=== PATIENT | female | born 1945 | race Caucasian/White ===

== ENCOUNTER 2016-09-09 19:22 | Inpatient (IN) | payer MEDICARE, OTHER ==
[~2016-09-09] VITALS: Ht 162.6 cm; Wt 75.3 kg
[~2016-09-09 19:22] MED LIST: ALBU18HF2 IH; ASCO-371 PO; BACL10TA PO; BISA10SU8 RC; CALC-167 PO; CHOL100062 PO; CRAN450C PO; DEXL30CA3 PO; DICL50TA9 PO; DICY20TA11 PO; DOCU-170 PO; ESZO3TAB10 PO; FENT1PAT22 TD; FENT1PAT6 TD; FLUT1DIS28 IH; HYDR25CA PO; LACT10SO7 PO; LIDO700A TP; LORA-259 PO; LORA10TA47 PO; LOSA50TA21 PO; MAGN400O4 PO; MONT10TA25 PO; MORP15TA7 PO; MORP30TA7 PO; MULT-1005 PO; OXYC30TA2 PO; PROP40TA7 PO; PSEU30TA PO; [UNRECOGNIZED DRUG - CODE] PO
--- NOTE | 2016-09-09 19:25 | NUR ---
PATIENT BROUGHT IN BY PRIVATE AMBULANCE FROM [facility] TO BE MEDICALLY CLEARED TO PLACED ON POSSIBLE 5150 HOLD... PT FROM [facility], PT IS NON RESPONSIVE TO STIMULUS , IS NON VERBAL, NO RESP DISTRESS NOTED OR REPORTED UPON ASSESSMENT..PT HAS SCRATCH ON LEFT SIDE OF CHEST... MD AT BEDSIDE...
--- NOTE | 2016-09-09 19:50 | NUR ---
MEDICALLY CLEARED BY DR MIRZA.CALLED JESSICA OCHOA FROM [employer] WHO WILL EVAL PATIENT
[2016-09-09] MEDS ORDERED: MORP60TA34 PO (19:57)
[2016-09-09] MEDS ORDERED: ATOR80TA PO (19:57)
[2016-09-09] MEDS ORDERED: ACET650T10 PO (19:57)
[2016-09-09] MEDS ORDERED: ASPI81TA31 PO (19:57)
[2016-09-09] MEDS ORDERED: CARV3.122 PO (19:57)
[2016-09-09] MEDS ORDERED: LUBI24CA7 PO (19:57)
[2016-09-09] MEDS ORDERED: LIDO5CRE18 TP (19:57)
[2016-09-09] MEDS ORDERED: NITR0.4T6 SL (19:57)
[2016-09-09] MEDS ORDERED: FURO-152 PO (19:57)
[2016-09-09] MEDS ORDERED: FAMO-132 PO (19:57)
[2016-09-09] MEDS ORDERED: CLOP75TA2 PO (19:57)
--- NOTE | 2016-09-09 20:25 | NUR ---
CALL PLACED TO [facility], TO INQUIRE ABOUT CODE STATUS, SPOKE WITH HERACLIO, WHO STATED THAT IF NO CODE STATUS IS INDICATED THAT PT IS FULL CODE, ONLY DNR'S ARE INDICATED... HERACLIO STATES THERES IS NO PAPERWORK SHE CAN FAX OVER TO VERIFY INFO...
[2016-09-09] MEDS ORDERED: CEPH-570 PO (20:40)
[2016-09-09] MEDS ORDERED: LEVE500T9 PO (20:40)
[2016-09-09] MEDS ORDERED: HYDR-4076 PO (20:40)
[2016-09-09] MEDS ORDERED: LIDO30AD10 TD (20:40)
[2016-09-09] MEDS ORDERED: PANT40TA2 PO (20:40)
[2016-09-09] MEDS ORDERED: CARV12.52 PO (20:40)
[2016-09-09] MEDS ORDERED: ZOLP5TAB7 PO (20:40)
[2016-09-09] MEDS ORDERED: ESCI10TA PO (20:40)
[2016-09-09] MEDS ORDERED: NA P133E RC (20:40)
[2016-09-09] MEDS ORDERED: POTA20TA83 PO (20:40)
[2016-09-09] MEDS ORDERED: NIFE30TA23 PO (20:40)
[2016-09-09] MEDS ORDERED: CLON0.1T PO (20:40)
[2016-09-09] MEDS ORDERED: GABA-534 PO (20:40)
[2016-09-09] MEDS ORDERED: ENOX40DI SQ (20:40)
--- NOTE | 2016-09-09 21:36 | NUR ---
advised by [facility] charge nurse that, no beds available, states will c/b...
--- NOTE | 2016-09-09 22:05 | NUR ---
Pt. admitted to [facility] , under care of Dr. Maldonado/ Guillaume, Belongs List completed, pt is alert, oriented x 2-3, no resp distress noted or reported upon transfer assessment...pt to be transferred via gurney...
[2016-09-09] MEDS ORDERED: TEMAZEPAM 7.5 MG CAPSULE PO PRN (23:15)
[2016-09-09] MEDS ORDERED: MAGNESIUM HYDROXIDE 30 ML LIQUID UDC PO PRN (23:15)
[2016-09-09] MEDS ORDERED: MAG HYDROX/AL HYDROX/SIMETH 30 ML LIQUID UDC PO PRN (23:15)
[2016-09-09] MEDS ORDERED: LORAZEPAM 0.5 MG TABLET PO PRN (23:15)
[2016-09-10 01:00] VITALS: BP 146/76
--- NOTE | 2016-09-10 06:28 | NUR ---
GPS: REMAIN CALM AND COOPERATIVE. SLEPT 6 HRS THROUGH THE NIGHT. NO AGITATION NOTED.ASSISTED WITH ADL'S. RESTING IN BED COMFORTABLY.CONTINUE PLAN OF CARE.
[2016-09-10 07:30] VITALS: BP 169/81
[2016-09-10] MEDS ORDERED: MORP30TA59 PO (10:29)
[2016-09-10] MEDS ORDERED: CLONIDINE HCL 0.1 MG TABLET PO PRN (11:00)
[2016-09-10] MEDS ORDERED: FAMOTIDINE 20 MG TABLET PO SCH (11:00)
[2016-09-10] MEDS ORDERED: LACTULOSE 20 G/30 ML LIQUID UDC PO PRN (11:00)
[2016-09-10] MEDS ORDERED: BACLOFEN 10 MG TABLET PO PRN (11:00)
[2016-09-10] MEDS ORDERED: NITROGLYCERIN 0.4 MG/TAB BOTTLE SL PRN (11:00)
[2016-09-10] MEDS ORDERED: FLEET ENEMA 133 ML BOTTLE RC PRN (11:00)
--- NOTE | 2016-09-10 12:08 | NUR ---
Initial discharge instructions: Pt resides at [facility] [[address],[place], [place],[address];[phone].Per pt,she would like to return there upon discharge.Spoke with Kadi at the facility who stated she may return,however will need to be reassessed before returning.There is no family listed on the chart,and pt reports to have none.SW will speak with pt and MD regarding appropriate discharge planning.SW will form a safe and proper discharge.
[2016-09-10] MEDS: LOSARTAN POTASSIUM 50 MG TABLET PO SCH (12:58)
[2016-09-10] MEDS: hydrALAZINE HCL 25 MG TABLET PO SCH ×2 (12:58→17:00)
[2016-09-10] MEDS: GABAPENTIN 300 MG CAPSULE PO SCH ×2 (12:58→17:00)
[2016-09-10] MEDS: NIFEdipine XL 30 MG TABSR PO SCH ×2 (12:59→20:52)
[2016-09-10] MEDS: POTASSIUM CHLORIDE 20 MEQ TAB.PRT.SR PO SCH (12:59)
[2016-09-10] MEDS: CLOPIDOGREL 75 MG TABLET PO SCH (12:59)
[2016-09-10] MEDS: ASCORBIC ACID 500 MG TABLET PO SCH (12:59)
[2016-09-10] MEDS: LEVETIRACETAM 500 MG TABLET PO SCH ×2 (12:59→17:00)
[2016-09-10] MEDS: FUROSEMIDE 20 MG TABLET PO SCH (12:59)
[2016-09-10] MEDS: CALCIUM CARB/VITAMIN D 500MG-200UNITS TABLET PO SCH (12:59)
[2016-09-10] MEDS: ENOXAPARIN SODIUM 40 MG/0.4 ML DISP.SYRIN SQ SCH (13:00)
[2016-09-10] MEDS: CARVEDILOL 12.5 MG TABLET PO SCH ×2 (14:11→18:00)
[2016-09-10] MEDS: LIDOCAINE 5% PATCH TD SCH (14:12)
[2016-09-10] MEDS: DOCUSATE SODIUM 100 MG CAPSULE PO SCH (17:00)
--- NOTE | 2016-09-10 18:26 | NUR ---
Patient sound asleep after shower rendered earlier this afternoon. Offered dinner meal and medications due at 1700, patient just open eyes then fall back to sleep. B/p rechecked 118/64; HR-65. Will monitor and endorse to next shift.
--- NOTE | 2016-09-10 20:19 | NUR ---
pt received in her room lying in bed awake, quiet, guarded, non interactive, denies SI/HI, will continue to monitor closely.
[2016-09-10 20:49] VITALS: BP 134/74
[2016-09-10] MEDS: LORATADINE 10 MG TABLET PO SCH (20:51)
[2016-09-10] MEDS: MONTELUKAST SODIUM 10 MG TABLET PO SCH (20:51)
[2016-09-10] MEDS: ATORVASTATIN 40 MG TABLET PO SCH (20:51)
[2016-09-10] MEDS: DIVALPROEX 250 MG TABLET.DR PO SCH (20:51)
[2016-09-10] MEDS ORDERED: MORPHINE SULFATE SR 30 MG TABLET.SA PO SCH (21:00)
[2016-09-11] MEDS: PANTOPRAZOLE SODIUM 40 MG TABLET.DR PO SCH (06:46)
[2016-09-11 07:30] VITALS: BP 145/72
[2016-09-11] MEDS: CARVEDILOL 12.5 MG TABLET PO SCH ×2 (08:00→17:14)
[2016-09-11] MEDS ORDERED: HOME MED MISCELLANEOUS PO SCH (09:00)
[2016-09-11] MEDS: NIFEdipine XL 30 MG TABSR PO SCH ×2 (09:00→20:12)
[2016-09-11] MEDS: ASPIRIN 81 MG TAB.CHEW PO SCH (09:00)
[2016-09-11] MEDS: CHOLECALCIFEROL 1,000 UNIT TABLET PO SCH (09:00)
[2016-09-11] MEDS: CLOPIDOGREL 75 MG TABLET PO SCH (09:40)
[2016-09-11] MEDS: hydrALAZINE HCL 25 MG TABLET PO SCH ×3 (09:40→17:13)
[2016-09-11] MEDS: LIDOCAINE 5% PATCH TD SCH (09:40)
[2016-09-11] MEDS: ASCORBIC ACID 500 MG TABLET PO SCH (09:41)
[2016-09-11] MEDS: FUROSEMIDE 20 MG TABLET PO SCH (09:41)
[2016-09-11] MEDS: DOCUSATE SODIUM 100 MG CAPSULE PO SCH ×3 (09:41→17:13)
[2016-09-11] MEDS: MULTIVIT, IRON, MIN NO. 8, FA TABLET PO SCH (09:41)
[2016-09-11] MEDS: CALCIUM CARB/VITAMIN D 500MG-200UNITS TABLET PO SCH (09:41)
[2016-09-11] MEDS: ESCITALOPRAM OXALATE 10 MG TABLET PO SCH (09:41)
[2016-09-11] MEDS: POTASSIUM CHLORIDE 20 MEQ TAB.PRT.SR PO SCH (09:41)
[2016-09-11] MEDS: GABAPENTIN 300 MG CAPSULE PO SCH ×2 (09:41→17:13)
[2016-09-11] MEDS: LOSARTAN POTASSIUM 50 MG TABLET PO SCH (09:42)
[2016-09-11] MEDS: DIVALPROEX 250 MG TABLET.DR PO SCH ×2 (09:43→20:12)
[2016-09-11] MEDS: LEVETIRACETAM 500 MG TABLET PO SCH ×2 (09:43→17:13)
[2016-09-11] MEDS: ENOXAPARIN SODIUM 40 MG/0.4 ML DISP.SYRIN SQ SCH (09:44)
[2016-09-11 15:33] VITALS: BP 163/82
--- NOTE | 2016-09-11 18:29 | NUR ---
PATIENT REMAINS DEPRESSED AND REFUSING LAXATIVES , SHE IS SLOW TO RESPOND EXCEPT LEFT SHOULDER PAIN WHICH LIDO DERM IS APPLIED
[2016-09-11] MEDS: LORATADINE 10 MG TABLET PO SCH (20:12)
[2016-09-11] MEDS: MONTELUKAST SODIUM 10 MG TABLET PO SCH (20:12)
[2016-09-11] MEDS: ATORVASTATIN 40 MG TABLET PO SCH (20:12)
[2016-09-11 20:29] VITALS: BP 154/86
[2016-09-12] MEDS: PANTOPRAZOLE SODIUM 40 MG TABLET.DR PO SCH (06:26)
--- NOTE | 2016-09-12 06:37 | NUR ---
GPS: PATIENT REMAIN DEPRESSED BUT COOPERATIVE WITH MEDS AND CARE. SLEPT 8 HRS THROUGH THE NIGHT.ASSISTED WITH ADL'S. CONTINUE PLAN OF CARE.
[2016-09-12 07:30] VITALS: BP 175/76
[2016-09-12] MEDS: CARVEDILOL 12.5 MG TABLET PO SCH ×2 (09:04→17:22)
[2016-09-12] MEDS: DOCUSATE SODIUM 100 MG CAPSULE PO SCH ×2 (09:05→17:21)
[2016-09-12] MEDS: ASPIRIN 81 MG TAB.CHEW PO SCH (09:05)
[2016-09-12] MEDS: hydrALAZINE HCL 25 MG TABLET PO SCH ×3 (09:05→17:21)
[2016-09-12] MEDS: DIVALPROEX 250 MG TABLET.DR PO SCH ×2 (09:06→20:17)
[2016-09-12] MEDS: POTASSIUM CHLORIDE 20 MEQ TAB.PRT.SR PO SCH (09:06)
[2016-09-12] MEDS: ESCITALOPRAM OXALATE 10 MG TABLET PO SCH (09:06)
[2016-09-12] MEDS: FUROSEMIDE 20 MG TABLET PO SCH (09:06)
[2016-09-12] MEDS: LOSARTAN POTASSIUM 50 MG TABLET PO SCH (09:06)
[2016-09-12] MEDS: LEVETIRACETAM 500 MG TABLET PO SCH ×2 (09:06→17:21)
[2016-09-12] MEDS: GABAPENTIN 300 MG CAPSULE PO SCH ×2 (09:07→17:21)
[2016-09-12] MEDS: CALCIUM CARB/VITAMIN D 500MG-200UNITS TABLET PO SCH (09:07)
[2016-09-12] MEDS: NIFEdipine XL 30 MG TABSR PO SCH ×2 (09:07→20:17)
[2016-09-12] MEDS: CLOPIDOGREL 75 MG TABLET PO SCH (09:07)
[2016-09-12] MEDS: ASCORBIC ACID 500 MG TABLET PO SCH (09:11)
[2016-09-12] MEDS: MULTIVIT, IRON, MIN NO. 8, FA TABLET PO SCH (09:11)
[2016-09-12] MEDS: CHOLECALCIFEROL 1,000 UNIT TABLET PO SCH (09:11)
[2016-09-12] MEDS: LIDOCAINE 5% PATCH TD SCH (09:12)
[2016-09-12] MEDS: ENOXAPARIN SODIUM 40 MG/0.4 ML DISP.SYRIN SQ SCH (09:28)
[2016-09-12 16:06] VITALS: BP 152/72
[2016-09-12] MEDS: ATORVASTATIN 40 MG TABLET PO SCH (20:16)
[2016-09-12] MEDS: MONTELUKAST SODIUM 10 MG TABLET PO SCH (20:16)
[2016-09-12] MEDS: LORATADINE 10 MG TABLET PO SCH (20:17)
[2016-09-12 20:27] VITALS: BP 116/60
[2016-09-13] MEDS: PANTOPRAZOLE SODIUM 40 MG TABLET.DR PO SCH (06:14)
--- NOTE | 2016-09-13 06:21 | NUR ---
GPS: REMAIN CALM AND COOPERATIVE.COMPLIANT WITH MEDS AND CARE. ASSISTED WITH ADL'S. SLEPT 8 HRS THROUGH THE NIGHT. CONTINUE PLAN OF CARE.
[2016-09-13 07:30] VITALS: BP 124/67
[2016-09-13] MEDS: LIDOCAINE 5% PATCH TD SCH (08:33)
[2016-09-13] MEDS: ASPIRIN 81 MG TAB.CHEW PO SCH (08:34)
[2016-09-13] MEDS: NIFEdipine XL 30 MG TABSR PO SCH ×2 (08:34→20:19)
[2016-09-13] MEDS: CALCIUM CARB/VITAMIN D 500MG-200UNITS TABLET PO SCH (08:34)
[2016-09-13] MEDS: GABAPENTIN 300 MG CAPSULE PO SCH ×2 (08:34→17:09)
[2016-09-13] MEDS: CLOPIDOGREL 75 MG TABLET PO SCH (08:34)
[2016-09-13] MEDS: ASCORBIC ACID 500 MG TABLET PO SCH (08:34)
[2016-09-13] MEDS: CARVEDILOL 12.5 MG TABLET PO SCH ×2 (08:35→17:17)
[2016-09-13] MEDS: DOCUSATE SODIUM 100 MG CAPSULE PO SCH ×2 (08:35→17:10)
[2016-09-13] MEDS: POTASSIUM CHLORIDE 20 MEQ TAB.PRT.SR PO SCH (08:35)
[2016-09-13] MEDS: ESCITALOPRAM OXALATE 10 MG TABLET PO SCH (08:35)
[2016-09-13] MEDS: LOSARTAN POTASSIUM 50 MG TABLET PO SCH (08:36)
[2016-09-13] MEDS: hydrALAZINE HCL 25 MG TABLET PO SCH ×3 (08:36→17:11)
[2016-09-13] MEDS: CHOLECALCIFEROL 1,000 UNIT TABLET PO SCH (08:37)
[2016-09-13] MEDS: MULTIVIT, IRON, MIN NO. 8, FA TABLET PO SCH (08:37)
[2016-09-13] MEDS: LEVETIRACETAM 500 MG TABLET PO SCH ×2 (08:37→17:09)
[2016-09-13] MEDS: DIVALPROEX 250 MG TABLET.DR PO SCH ×2 (08:37→20:20)
[2016-09-13] MEDS: FUROSEMIDE 20 MG TABLET PO SCH (08:37)
[2016-09-13] MEDS: ENOXAPARIN SODIUM 40 MG/0.4 ML DISP.SYRIN SQ SCH (08:38)
[2016-09-13 15:20] VITALS: BP 123/69
--- NOTE | 2016-09-13 18:09 | NUR ---
PT REMAINS DEPRESSED WITH NOSELF DISCLOUSEURE EATING A LITTLE MORE TODAY CONTINUE TO MONITOR FOR SAFETY
[2016-09-13] MEDS: ATORVASTATIN 40 MG TABLET PO SCH (20:19)
[2016-09-13] MEDS: MONTELUKAST SODIUM 10 MG TABLET PO SCH (20:19)
[2016-09-13] MEDS: LORATADINE 10 MG TABLET PO SCH (20:20)
[2016-09-13 20:31] VITALS: BP 121/58
[2016-09-14] MEDS: PANTOPRAZOLE SODIUM 40 MG TABLET.DR PO SCH (06:21)
--- NOTE | 2016-09-14 06:23 | NUR ---
Remains depressed but compliant w/ meds. Rested well. Patient received morning shower today. Will continue to monitor.
[2016-09-14 07:30] VITALS: BP 146/64
[2016-09-14] MEDS: CARVEDILOL 12.5 MG TABLET PO SCH ×2 (08:35→17:18)
[2016-09-14] MEDS: FUROSEMIDE 20 MG TABLET PO SCH (08:35)
[2016-09-14] MEDS: ASCORBIC ACID 500 MG TABLET PO SCH (08:35)
[2016-09-14] MEDS: GABAPENTIN 300 MG CAPSULE PO SCH ×2 (08:35→17:08)
[2016-09-14] MEDS: CLOPIDOGREL 75 MG TABLET PO SCH (08:36)
[2016-09-14] MEDS: LEVETIRACETAM 500 MG TABLET PO SCH ×2 (08:36→17:08)
[2016-09-14] MEDS: CALCIUM CARB/VITAMIN D 500MG-200UNITS TABLET PO SCH (08:36)
[2016-09-14] MEDS: POTASSIUM CHLORIDE 20 MEQ TAB.PRT.SR PO SCH (08:36)
[2016-09-14] MEDS: ASPIRIN 81 MG TAB.CHEW PO SCH (08:36)
[2016-09-14] MEDS: MULTIVIT, IRON, MIN NO. 8, FA TABLET PO SCH (08:36)
[2016-09-14] MEDS: LOSARTAN POTASSIUM 50 MG TABLET PO SCH (08:36)
[2016-09-14] MEDS: ESCITALOPRAM OXALATE 10 MG TABLET PO SCH (08:36)
[2016-09-14] MEDS: DOCUSATE SODIUM 100 MG CAPSULE PO SCH ×2 (08:36→17:08)
[2016-09-14] MEDS: hydrALAZINE HCL 25 MG TABLET PO SCH ×3 (08:37→17:17)
[2016-09-14] MEDS: NIFEdipine XL 30 MG TABSR PO SCH ×2 (08:37→20:00)
[2016-09-14] MEDS: DIVALPROEX 250 MG TABLET.DR PO SCH ×2 (08:37→20:00)
[2016-09-14] MEDS: CHOLECALCIFEROL 1,000 UNIT TABLET PO SCH (08:37)
[2016-09-14] MEDS: ENOXAPARIN SODIUM 40 MG/0.4 ML DISP.SYRIN SQ SCH (08:39)
[2016-09-14] MEDS: LIDOCAINE 5% PATCH TD SCH ×2 (08:40→09:00)
[2016-09-14 16:14] VITALS: BP 109/53
--- NOTE | 2016-09-14 19:26 | NUR ---
Bladder scan done and 700ml of urinary retention noted. MD called and made aware. New orders received and carried out.
[2016-09-14 19:32] LABS: *BILIRUBIN,URIN NEGATIVE (NEGATIVE); *BLOOD, URINE NEGATIVE (NEGATIVE); *CLARITY,URINE CLEAR (CLEAR); *COLOR,URINE YELLOW (YELLOW); *KETONES,URINE NEGATIVE (NEGATIVE); *PROTEIN,URINE NEGATIVE (NEGATIVE); *UROBILINOGEN,URINE 0.2 E.U./dl (NORMAL); LEUKOCYTE ESTERASE ,URINE NEGATIVE (NEGATIVE); NITRITE, URINE NEGATIVE (NEGATIVE); UGLUCOSE NEGATIVE (NEGATIVE)
[2016-09-14 19:47] LABS: RBC,URINE 0-3 /HPF (0-3); SQUAMOUS EPITHELIAL CELL,UR FEW /HPF (NONE SEEN); WBC,URINE 0-3 /HPF (0-3)
[2016-09-14] MEDS: ATORVASTATIN 40 MG TABLET PO SCH (20:00)
[2016-09-14] MEDS: MONTELUKAST SODIUM 10 MG TABLET PO SCH (20:00)
[2016-09-14] MEDS: LORATADINE 10 MG TABLET PO SCH (20:00)
[2016-09-14] MEDS: Z GUARD REMEDY PASTE 57 GM TUBE TOP SCH (20:01)
[2016-09-14 20:17] VITALS: BP 106/54
--- NOTE | 2016-09-14 20:30 | NUR ---
PT RECEIVED IN HER ROOM LYING IN BED AWAKE, DEPRESSED AND FLAT AFFECT, WILLIAM IN AND DRAINING JACK COLOR, TOO ALL HS MEDS ORDERED, BP MED HELD DUE TO LOW BUT STABLE BP, WILL CONTINUE TO MONITOR.
[2016-09-15] MEDS: PANTOPRAZOLE SODIUM 40 MG TABLET.DR PO SCH (06:40)
[2016-09-15 08:00] VITALS: BP 132/62
[2016-09-15] MEDS: CARVEDILOL 12.5 MG TABLET PO SCH ×2 (08:00→17:39)
[2016-09-15] MEDS: DIVALPROEX 250 MG TABLET.DR PO SCH ×2 (08:47→20:01)
[2016-09-15] MEDS: CLOPIDOGREL 75 MG TABLET PO SCH (08:47)
[2016-09-15] MEDS: CALCIUM CARB/VITAMIN D 500MG-200UNITS TABLET PO SCH (08:47)
[2016-09-15] MEDS: DOCUSATE SODIUM 100 MG CAPSULE PO SCH ×2 (08:48→17:39)
[2016-09-15] MEDS: ASPIRIN 81 MG TAB.CHEW PO SCH (08:48)
[2016-09-15] MEDS: CHOLECALCIFEROL 1,000 UNIT TABLET PO SCH (08:48)
[2016-09-15] MEDS: ASCORBIC ACID 500 MG TABLET PO SCH (08:48)
[2016-09-15] MEDS: ENOXAPARIN SODIUM 40 MG/0.4 ML DISP.SYRIN SQ SCH (08:52)
[2016-09-15] MEDS: POTASSIUM CHLORIDE 20 MEQ TAB.PRT.SR PO SCH (09:31)
[2016-09-15] MEDS: MULTIVIT, IRON, MIN NO. 8, FA TABLET PO SCH (09:31)
[2016-09-15] MEDS: LEVETIRACETAM 500 MG TABLET PO SCH ×2 (09:31→17:39)
[2016-09-15] MEDS: NIFEdipine XL 30 MG TABSR PO SCH ×2 (09:31→20:02)
[2016-09-15] MEDS: ESCITALOPRAM OXALATE 10 MG TABLET PO SCH (09:31)
[2016-09-15] MEDS: LOSARTAN POTASSIUM 50 MG TABLET PO SCH (09:31)
[2016-09-15] MEDS: hydrALAZINE HCL 25 MG TABLET PO SCH ×3 (09:32→17:39)
[2016-09-15] MEDS: GABAPENTIN 300 MG CAPSULE PO SCH ×2 (09:32→17:38)
[2016-09-15] MEDS: FUROSEMIDE 20 MG TABLET PO SCH (09:32)
[2016-09-15] MEDS: LIDOCAINE 5% PATCH TD SCH (09:33)
[2016-09-15] MEDS: Z GUARD REMEDY PASTE 57 GM TUBE TOP SCH ×2 (09:33→20:03)
[2016-09-15 16:00] VITALS: BP 125/63
[2016-09-15] MEDS: LORATADINE 10 MG TABLET PO SCH (20:01)
[2016-09-15] MEDS: MONTELUKAST SODIUM 10 MG TABLET PO SCH (20:01)
[2016-09-15] MEDS: ATORVASTATIN 40 MG TABLET PO SCH (20:01)
--- NOTE | 2016-09-15 20:05 | NUR ---
PT IS DEPRESSED,GUARDED, WITHDRAWN AND ISOLATIVE. TEARY EYES, PT ENCOURAGED TO MAKE NEEDS KNOWN, MED COMPLIANT, WILL CONTINUE TO MONITOR.
[2016-09-15 20:20] VITALS: BP 120/54
[2016-09-16] MEDS: PANTOPRAZOLE SODIUM 40 MG TABLET.DR PO SCH (06:31)
[2016-09-16 07:05] LABS: BASOPHILS % (AUTO) 0.1 % (0.0-2.0); EOSINOPHILS # (AUTO) 0.2 K/uL (0.0-0.7); HEMOGLOBIN 12.9 G/DL (12.0-16.0); LYMPHOCYTES % (AUTO) 24.8 % (20.5-51.5); MEAN CORPUSCULAR HEMOGLOBIN 31.6 UUG (27.0-31.0); MEAN CORPUSCULAR HGB CONC 33 g/dL (32.0-37.0); MEAN CORPUSCULAR VOLUME 95.4 FL (81.0-99.0); MONOCYTES # (AUTO) 0.9 K/UL (0.1-1.30); MONOCYTES % (AUTO) 7.3 % (0.0-11.0); NEUTROPHILS # (AUTO) 7.9 K/UL (1.8-8.9); NEUTROPHILS % (AUTO) 65.8 % (38.5-71.5); PLATELET COUNT (AUTO) 242 K/UL (150-450); RED BLOOD CELL COUNT(AUTO) 4.09 MIL/UL (4.2-5.4)
[2016-09-16 07:15] LABS: CREATININE 0.7 mg/dL (0.6-1.3); POTASSIUM 3.9 mmol/L (3.5-5.1)
[2016-09-16 07:30] VITALS: BP 125/61
--- NOTE | 2016-09-16 08:36 | NUR ---
GPS/RN- DR HUYNH HERE TO SEE PATIENT INFORMED OF AM LABS INCLUDING ELEVATED WBC THIS AM, NO NEW ORDERS RECEIVED AT THIS TIME CONTINUE TO MONITOR
[2016-09-16] MEDS: FUROSEMIDE 20 MG TABLET PO SCH (08:40)
[2016-09-16] MEDS: ESCITALOPRAM OXALATE 10 MG TABLET PO SCH (08:40)
[2016-09-16] MEDS: CALCIUM CARB/VITAMIN D 500MG-200UNITS TABLET PO SCH (08:40)
[2016-09-16] MEDS: CHOLECALCIFEROL 1,000 UNIT TABLET PO SCH (08:40)
[2016-09-16] MEDS: DOCUSATE SODIUM 100 MG CAPSULE PO SCH ×2 (08:40→17:44)
[2016-09-16] MEDS: MULTIVIT, IRON, MIN NO. 8, FA TABLET PO SCH (08:40)
[2016-09-16] MEDS: GABAPENTIN 300 MG CAPSULE PO SCH ×2 (08:40→17:44)
[2016-09-16] MEDS: DIVALPROEX 250 MG TABLET.DR PO SCH ×2 (08:40→20:35)
[2016-09-16] MEDS: LIDOCAINE 5% PATCH TD SCH (08:40)
[2016-09-16] MEDS: POTASSIUM CHLORIDE 20 MEQ TAB.PRT.SR PO SCH (08:40)
[2016-09-16] MEDS: LEVETIRACETAM 500 MG TABLET PO SCH ×2 (08:41→17:45)
[2016-09-16] MEDS: ASCORBIC ACID 500 MG TABLET PO SCH (08:41)
--- NOTE | 2016-09-16 08:47 | NUR ---
DC: Patient will be discharged to [facility] [[address] [place] [address]; [phone]] via ambulance at 11:00 am. Please schedule an ambulance for the patient. Spoke with Mary Jo at the facility who stated she would accept the patient today. Patient is aware and agreeable with discharge plans. Patient will follow-up with ([employer]) and (Psychiatrist) at the facility.
[2016-09-16] MEDS: Z GUARD REMEDY PASTE 57 GM TUBE TOP SCH ×3 (09:00→21:03)
[2016-09-16] MEDS: ASPIRIN 81 MG TAB.CHEW PO SCH (09:00)
[2016-09-16] MEDS: CLOPIDOGREL 75 MG TABLET PO SCH (09:00)
[2016-09-16] MEDS: LOSARTAN POTASSIUM 50 MG TABLET PO SCH (09:04)
[2016-09-16] MEDS: CARVEDILOL 12.5 MG TABLET PO SCH ×2 (09:04→17:45)
[2016-09-16] MEDS: hydrALAZINE HCL 25 MG TABLET PO SCH ×3 (09:05→17:45)
[2016-09-16] MEDS: NIFEdipine XL 30 MG TABSR PO SCH ×2 (09:05→20:36)
[2016-09-16] MEDS: ENOXAPARIN SODIUM 40 MG/0.4 ML DISP.SYRIN SQ SCH (09:19)
[2016-09-16 16:00] VITALS: BP 112/60
[2016-09-16] MEDS: ACETAMINOPHEN 325 MG TABLET PO PRN (18:50)
--- NOTE | 2016-09-16 20:00 | NUR ---
Patient received in her room lying in bed awake, remains depressed, isolative, stated she was uncomfortable earlier but that she was given Tylenol, poor motivation. poor insight compliant with Meds,redirection needed. will continue to monitor closely.
[2016-09-16 20:31] VITALS: BP 121/62
[2016-09-16] MEDS: LORATADINE 10 MG TABLET PO SCH (20:35)
[2016-09-16] MEDS: MONTELUKAST SODIUM 10 MG TABLET PO SCH (20:35)
[2016-09-16] MEDS: ATORVASTATIN 40 MG TABLET PO SCH (20:35)
[2016-09-17] MEDS: PANTOPRAZOLE SODIUM 40 MG TABLET.DR PO SCH (06:55)
[2016-09-17 07:30] VITALS: BP 138/66
[2016-09-17 07:42] LABS: BASOPHILS % (AUTO) 0.4 % (0.0-2.0); EOSINOPHILS # (AUTO) 0.2 K/uL (0.0-0.7); EOSINOPHILS % (AUTO) 2.2 % (0.0-7.0); HEMATOCRIT 39.8 % (37-47); HEMOGLOBIN 13.3 G/DL (12.0-16.0); LYMPHOCYTES # (AUTO) 2.4 K/UL (0.8-4.8); LYMPHOCYTES % (AUTO) 25.4 % (20.5-51.5); MEAN CORPUSCULAR HGB CONC 33 g/dL (32.0-37.0); MEAN CORPUSCULAR VOLUME 95.9 FL (81.0-99.0); MONOCYTES # (AUTO) 0.7 K/UL (0.1-1.30); MONOCYTES % (AUTO) 7.4 % (0.0-11.0); NEUTROPHILS # (AUTO) 6.3 K/UL (1.8-8.9); NEUTROPHILS % (AUTO) 64.6 % (38.5-71.5); PLATELET COUNT (AUTO) 227 K/UL (150-450); RED BLOOD CELL COUNT(AUTO) 4.15 MIL/UL (4.2-5.4); WHITE BLOOD COUNT (AUTO) 9.6 K/UL (4.0-11.2)
[2016-09-17] MEDS: CARVEDILOL 12.5 MG TABLET PO SCH (08:00)
[2016-09-17 08:05] LABS: BILIRUBIN,TOTAL 0.4 mg/dL (0.2-1.0); CREATININE 0.7 mg/dL (0.6-1.3); POTASSIUM 3.9 mmol/L (3.5-5.1); TOTAL PROTEIN, SERUM 6.3 g/dL (6.4-8.2)
[2016-09-17 08:26] LABS: *BILIRUBIN,URIN NEGATIVE (NEGATIVE); *BLOOD, URINE NEGATIVE (NEGATIVE); *CLARITY,URINE CLEAR (CLEAR); *COLOR,URINE YELLOW (YELLOW); *UROBILINOGEN,URINE 0.2 E.U./dl (NORMAL); NITRITE, URINE NEGATIVE (NEGATIVE); UGLUCOSE NEGATIVE (NEGATIVE)
[2016-09-17 08:51] LABS: BACTERIA,URINE FEW /HPF (NONE SEEN); RBC,URINE 0-3 /HPF (0-3)
[2016-09-17] MEDS: CLOPIDOGREL 75 MG TABLET PO SCH (09:00)
[2016-09-17] MEDS: DOCUSATE SODIUM 100 MG CAPSULE PO SCH (09:00)
[2016-09-17] MEDS: Z GUARD REMEDY PASTE 57 GM TUBE TOP SCH ×2 (09:00→12:39)
[2016-09-17] MEDS: ASPIRIN 81 MG TAB.CHEW PO SCH (09:00)
--- NOTE | 2016-09-17 09:00 | NUR ---
GPS/RN- PATIENT ON LOVENOX, ASPIRIN AND PLAVIX, WILL CONFIRM WITH MD IF PATIENT WILL REQUIRE ALL THREE MEDS, HIGH RISK FOR BLEEDING.
[2016-09-17] MEDS: NIFEdipine XL 30 MG TABSR PO SCH (09:27)
[2016-09-17] MEDS: LOSARTAN POTASSIUM 50 MG TABLET PO SCH (09:27)
[2016-09-17] MEDS: FUROSEMIDE 20 MG TABLET PO SCH (09:27)
[2016-09-17] MEDS: LEVETIRACETAM 500 MG TABLET PO SCH (09:27)
[2016-09-17] MEDS: ESCITALOPRAM OXALATE 10 MG TABLET PO SCH (09:27)
[2016-09-17] MEDS: POTASSIUM CHLORIDE 20 MEQ TAB.PRT.SR PO SCH (09:28)
[2016-09-17] MEDS: LIDOCAINE 5% PATCH TD SCH (09:28)
[2016-09-17] MEDS: DIVALPROEX 250 MG TABLET.DR PO SCH (09:28)
[2016-09-17] MEDS: hydrALAZINE HCL 25 MG TABLET PO SCH ×2 (09:28→12:38)
[2016-09-17] MEDS: GABAPENTIN 300 MG CAPSULE PO SCH (09:28)
[2016-09-17] MEDS: ENOXAPARIN SODIUM 40 MG/0.4 ML DISP.SYRIN SQ SCH (09:31)
[2016-09-17 11:13] LABS: *PROTEIN,URINE 1+ (NEGATIVE)
[2016-09-17 11:14] LABS: *KETONES,URINE 1+ (NEGATIVE)
[2016-09-17 11:27] LABS: LEUKOCYTE ESTERASE ,URINE NEGATIVE (NEGATIVE); SQUAMOUS EPITHELIAL CELL,UR FEW /HPF (NONE SEEN); YEAST,URINE RARE /HPF (NONE SEEN)
[2016-09-17 11:28] LABS: CALCIUM OXALATE CRYSTALS,UR RARE /HPF (NONE SEEN); MUCUS,URINE FEW /LPF (0-FEW)
--- NOTE | 2016-09-17 12:35 | NUR ---
DC: Patient will be discharged to [facility] [[address] [place] [address]; [phone]] via ambulance at 11:00 am. Please schedule an ambulance for the patient. Spoke with Mary Jo at the facility who stated she would accept the patient today. Patient is aware and agreeable with discharge plans. Patient will follow-up with (Client Services Coordinator) and (Psychiatrist) at the facility.
[2016-09-17] MEDS: ASCORBIC ACID 500 MG TABLET PO SCH (12:38)
[2016-09-17] MEDS: CHOLECALCIFEROL 1,000 UNIT TABLET PO SCH (12:38)
[2016-09-17] MEDS: CALCIUM CARB/VITAMIN D 500MG-200UNITS TABLET PO SCH (12:38)
[2016-09-17] MEDS: MULTIVIT, IRON, MIN NO. 8, FA TABLET PO SCH (12:38)
[2016-09-17 12:49] VITALS: BP 123/56
[2016-09-17] MEDS ORDERED: NYSTATIN POWDER 15 GM BOTTLE TOP SCH (13:30)
[2016-09-17] MEDS ORDERED: CEPHALEXIN MONOHYDRATE 250 MG CAPSULE PO SCH (14:00)
[2016-09-17 15:00] VITALS: BP 117/56
[2016-09-17 15:02] VITALS: BP 117/56
--- NOTE | 2016-09-17 15:30 | NUR ---
GPS.RN- DISCHARGE NOTE. patient is alert and oriented to person place time , compliant with care and meds, encouraged on adls. chronic pain syndrome managed with current meds, patient with more discomfort during adls, patient with pain during care this afternoon, refused tylenol. patient aware of discharge, instructions given poor motivation, reinforced to facility nurse Rito, RN. Patient will be discharged to [facility] [[id number] [place] [id number]; [phone]] via ambulance. Patient is aware and agreeable with discharge plans. Patient will follow-up with (Returning Officer) and (Psychiatrist) at the facility.
[2016-09-17] MEDS: ACETAMINOPHEN 325 MG TABLET PO PRN (15:56)
--- NOTE | 2016-09-17 15:57 | NUR ---
discharged in stable condition
== END 2016-09-17 15:57 | DRG 302 ==
LOC: ER 19:22 → GPS 22:37
PROVIDERS: ADMIT Psychiatry & Neurology Psychiatry; ATTEND Internal Medicine
DX: I25.10 Atherosclerotic heart disease of native coronary artery without angina pectoris (principal); G93.41 Metabolic encephalopathy; N39.0 Urinary tract infection, site not specified; F39 Unspecified mood [affective] disorder; M48.00 Spinal stenosis, site unspecified; Z79.82 Long term (current) use of aspirin; G89.4 Chronic pain syndrome; M79.7 Fibromyalgia; J44.9 Chronic obstructive pulmonary disease, unspecified; G40.909 Epilepsy, unspecified, not intractable, without status epilepticus; K21.9 Gastro-esophageal reflux disease without esophagitis; Z79.899 Other long term (current) drug therapy; Z79.02 Long term (current) use of antithrombotics/antiplatelets; I25.2 Old myocardial infarction; Z95.5 Presence of coronary angioplasty implant and graft; F50.89 Other specified eating disorder; I10 Essential (primary) hypertension
CPT/HCPCS: 36415; 85025; 87086; 97001; 97116; 97530; A4663; J1650; J3490

== ENCOUNTER 2017-05-03 12:48 | Inpatient (IN) | payer MEDICARE, OTHER ==
[~2017-05-03] VITALS: Ht 167.6 cm; Wt 76.7 kg
[~2017-05-03 12:48] MED LIST changes: +ACET650T10 PO; -ALBU18HF2 IH; -ASCO-371 PO; +ASCO-375 PO; +ASPI81TA31 PO; +ATOR80TA PO; -BISA10SU8 RC; +CARV12.52 PO; +CLON0.1T PO; +CLOP75TA15 PO; -CRAN450C PO; -DEXL30CA3 PO; -DICL50TA9 PO; -DICY20TA11 PO; -DOCU-170 PO; +DOCU100C36 PO; +ENOX40DI SQ; -ESZO3TAB10 PO; +FAMO-132 PO; -FENT1PAT22 TD; -FENT1PAT6 TD; -FLUT1DIS28 IH; +FURO-152 PO; +GABA-534 PO; +HYDR-4076 PO; -HYDR25CA PO; +LEVE500T9 PO; +LIDO30AD10 TD; -LIDO700A TP; -LORA-259 PO; +LUBI24CA5 PO; -MAGN400O4 PO; -MORP15TA7 PO; +MORP30TA59 PO; -MORP30TA7 PO; +NA P133E RC; +NIFE30TA23 PO; +NITR0.4T48 SL; -OXYC30TA2 PO; +PANT40TA2 PO; +POTA20TA83 PO; -PROP40TA7 PO; -PSEU30TA PO; -[UNRECOGNIZED DRUG - CODE] PO
[2017-05-03] MEDS ORDERED: PROMETHAZINE HCL 25 MG/1 ML VIAL IM ONE ×2 (13:15→18:00)
[2017-05-03] MEDS ORDERED: HYDROMORPHONE 1 MG/1 ML DISP.SYRIN IM ONE ×2 (13:15→18:00)
[2017-05-03] MEDS ORDERED: DEXT1LOZ20 PO (13:23)
[2017-05-03] MEDS ORDERED: DIVA250T PO (13:23)
[2017-05-03] MEDS ORDERED: POLY17PO4 PO (13:23)
[2017-05-03] MEDS ORDERED: SENN-167 PO (13:23)
[2017-05-03] MEDS ORDERED: AMIN30LI27 PO (13:23)
[2017-05-03] MEDS ORDERED: ESCI10TA PO (13:23)
[2017-05-03] MEDS ORDERED: LORA0.5T PO (13:23)
[2017-05-03] MEDS ORDERED: ALBU8HFA4 IH (13:23)
[2017-05-03] MEDS ORDERED: GUAI237L83 PO (13:23)
[2017-05-03] MEDS ORDERED: DICL100G16 TP (13:23)
[2017-05-03] MEDS ORDERED: IBUP-1955 PO (13:23)
[2017-05-03] MEDS ORDERED: AZEL137S7 NS (13:23)
[2017-05-03] MEDS ORDERED: MAG355OR18 PO (13:23)
[2017-05-03] MEDS ORDERED: PROMETHAZINE HCL 25 MG/1 ML VIAL ONE ×2 (13:36→18:15)
[2017-05-03] MEDS ORDERED: HYDROMORPHONE 2 MG/1 ML DISP.SYRIN ONE ×2 (13:37→18:15)
[2017-05-03] MEDS ORDERED: MORPHINE SULFATE 2 MG/1 ML DISP.SYRIN IV ONE (18:45)
[2017-05-03 18:55] VITALS: BP 115/55
[2017-05-03] MEDS ORDERED: MORPHINE SULFATE 4 MG/1 ML DISP.SYRIN IV PRN (19:30)
[2017-05-03 20:00] VITALS: BP 110/51
[2017-05-04] MEDS: BACLOFEN 10 MG TABLET PO SCH ×3 (00:12→21:37)
[2017-05-04] MEDS: LORAZEPAM 0.5 MG TABLET PO PRN ×2 (00:12→22:31)
[2017-05-04] MEDS: GABAPENTIN 300 MG CAPSULE PO SCH ×3 (00:12→16:59)
[2017-05-04] MEDS ORDERED: BACLOFEN 10 MG TABLET ONE (00:23)
[2017-05-04] MEDS ORDERED: GABAPENTIN 300 MG CAPSULE ONE (00:23)
[2017-05-04] MEDS: ACETAMINOPHEN 325 MG TABLET PO PRN ×3 (01:05→21:39)
[2017-05-04] MEDS ORDERED: ACETAMINOPHEN 325 MG TABLET ONE (01:20)
[2017-05-04] MEDS: MORPHINE SULFATE 2 MG/1 ML DISP.SYRIN IM PRN ×2 (02:23→06:34)
[2017-05-04] MEDS ORDERED: MORPHINE SULFATE 2 MG/1 ML DISP.SYRIN ONE ×2 (02:33→06:48)
[2017-05-04 05:55] VITALS: BP 120/54
[2017-05-04] MEDS: MORPHINE SULFATE 4 MG/1 ML DISP.SYRIN IM PRN ×4 (09:40→21:35)
[2017-05-04] MEDS ORDERED: [UNRECOGNIZED DRUG - OTHER] PO PRN (11:00)
[2017-05-04] MEDS ORDERED: IRON PO SCH (11:00)
[2017-05-04] MEDS ORDERED: MAG HYDROX/AL HYDROX/SIMETH 30 ML LIQUID UDC PO PRN (11:00)
[2017-05-04] MEDS ORDERED: LORAZEPAM 0.5 MG TABLET PO PRN (11:00)
[2017-05-04] MEDS ORDERED: [UNRECOGNIZED DRUG - OTHER] PO SCH (11:00)
[2017-05-04] MEDS ORDERED: Medication Not On Formulary EA (Amino Acids/Protein Hydrolys (Pro-Stat Sugar Free Liquid PO SCH (11:00)
[2017-05-04] MEDS ORDERED: DEXTROMETH PO PRN (11:00)
[2017-05-04] MEDS: LIDOCAINE 5% PATCH TD SCH ×2 (11:00→13:40)
[2017-05-04] MEDS ORDERED: FLEET ENEMA 133 ML BOTTLE RC PRN (11:00)
[2017-05-04] MEDS ORDERED: ALBUTEROL SULFATE 8 GM HFA.AER.AD IH PRN (11:00)
[2017-05-04] MEDS ORDERED: IBUPROFEN 600 MG TABLET PO PRN (11:00)
[2017-05-04] MEDS ORDERED: MENTHOL PO PRN (11:00)
[2017-05-04] MEDS ORDERED: LACTULOSE 20 G/30 ML LIQUID UDC PO PRN (11:00)
[2017-05-04] MEDS ORDERED: BENZOCAINE PO PRN (11:00)
[2017-05-04] MEDS ORDERED: NITROGLYCERIN 0.4 MG/TAB BOTTLE SL PRN (11:00)
[2017-05-04 11:27] LABS: BASOPHILS # (AUTO) 0.1 K/uL (0.0-8.0); BASOPHILS % (AUTO) 0.6 % (0.0-2.0); EOSINOPHILS # (AUTO) 0.4 K/uL (0.0-0.7); EOSINOPHILS % (AUTO) 4.1 % (0.0-7.0); HEMATOCRIT 35.5 % (31.2-41.9); HEMOGLOBIN 12.3 g/dL (10.9-14.3); LYMPHOCYTES % (AUTO) 10.9 % (20.5-51.5); MEAN CORPUSCULAR HEMOGLOBIN 32.9 uug (24.7-32.8); MEAN CORPUSCULAR HGB CONC 35 g/dL (32.3-35.6); MEAN CORPUSCULAR VOLUME 95.2 fL (75.5-95.3); MONOCYTES # (AUTO) 0.4 K/uL (2.0-10.0); MONOCYTES % (AUTO) 4.4 % (0.0-11.0); NEUTROPHILS # (AUTO) 7.4 K/uL (1.8-8.9); PLATELET COUNT (AUTO) 255 K/uL (179-408); RED BLOOD CELL COUNT(AUTO) 3.72 MIL/uL (3.63-4.92); WHITE BLOOD COUNT (AUTO) 9.3 K/uL (3.8-11.8)
[2017-05-04] MEDS ORDERED: ALBUTEROL SULFATE 2.5 MG/3 ML NEBU NEB PRN (11:30)
[2017-05-04] MEDS ORDERED: GUAIFENESIN/DEXTROMETHORPHAN 5 ML UDC PO PRN (11:30)
[2017-05-04] MEDS: CLOPIDOGREL 75 MG TABLET PO SCH (11:30)
[2017-05-04] MEDS: PROTEIN SUPPLEMENT (PROSTAT) 30 ML LIQUID PO SCH ×2 (11:30→17:00)
[2017-05-04 11:47] VITALS: BP 102/46
[2017-05-04] MEDS ORDERED: DIVA250T4 PO (11:58)
[2017-05-04] MEDS ORDERED: ONDANSETRON HCL 4 MG TABLET PO PRN (12:45)
[2017-05-04 12:51] LABS: CARBON DIOXIDE 30 mmol/L (21-32); CHLORIDE 92 mmol/L (98-107); CREATININE 0.7 mg/dL (0.6-1.3); GLUCOSE 109 mg/dL (74-106); POTASSIUM 3.7 mmol/L (3.5-5.1); UREA NITROGEN, BLOOD 10 mg/dL (7-18)
[2017-05-04] MEDS: ASCORBIC ACID 500 MG TABLET PO SCH (13:40)
[2017-05-04] MEDS: CALCIUM CARB/VITAMIN D 500MG-200UNITS TABLET PO SCH (13:40)
[2017-05-04] MEDS: ESCITALOPRAM OXALATE 10 MG TABLET PO SCH (13:40)
[2017-05-04] MEDS: DIVALPROEX 250 MG TABLET.DR PO SCH ×2 (13:40→21:37)
[2017-05-04] MEDS: MULTIVIT, IRON, MIN NO. 8, FA TABLET PO SCH (13:40)
[2017-05-04] MEDS: CARVEDILOL 12.5 MG TABLET PO SCH ×2 (13:41→16:59)
[2017-05-04] MEDS: DOCUSATE SODIUM 100 MG CAPSULE PO SCH ×2 (13:41→16:59)
[2017-05-04] MEDS: POTASSIUM CHLORIDE 20 MEQ TAB.PRT.SR PO SCH (13:41)
[2017-05-04] MEDS: NIFEdipine XL 30 MG TABSR PO SCH ×2 (13:41→21:38)
[2017-05-04] MEDS: LOSARTAN POTASSIUM 50 MG TABLET PO SCH (13:42)
[2017-05-04 15:00] VITALS: BP 102/40
[2017-05-04] MEDS: ASPIRIN 81 MG TAB.CHEW PO SCH (15:00)
[2017-05-04] MEDS: PANTOPRAZOLE SODIUM 40 MG TABLET.DR PO SCH (15:00)
[2017-05-04] MEDS: MIRALAX 17 GM POWD.PACK PO SCH (15:00)
[2017-05-04] MEDS ORDERED: BISACODYL 5 MG TABLET.DR PO PRN (15:30)
[2017-05-04] MEDS ORDERED: DIVALPROEX ER 250 MG TAB.SR.24H PO SCH (17:00)
[2017-05-04 18:30] VITALS: BP 106/51
[2017-05-04 18:43] LABS: *BILIRUBIN,URIN NEGATIVE (NEGATIVE); *BLOOD, URINE 2+ (NEGATIVE); *COLOR,URINE YELLOW (YELLOW); *KETONES,URINE NEGATIVE (NEGATIVE); *PROTEIN,URINE TRACE (NEGATIVE); *UROBILINOGEN,URINE 0.2 E.U./dl (NORMAL); LEUKOCYTE ESTERASE ,URINE NEGATIVE (NEGATIVE); NITRITE, URINE NEGATIVE (NEGATIVE); UGLUCOSE NEGATIVE (NEGATIVE)
[2017-05-04 18:51] LABS: BASOPHILS # (AUTO) 0.1 K/uL (0.0-8.0); BASOPHILS % (AUTO) 0.8 % (0.0-2.0); EOSINOPHILS # (AUTO) 0.4 K/uL (0.0-0.7); EOSINOPHILS % (AUTO) 4.1 % (0.0-7.0); HEMATOCRIT 35.9 % (31.2-41.9); HEMOGLOBIN 12.5 g/dL (10.9-14.3); LYMPHOCYTES # (AUTO) 1.3 K/uL (20.0-40.0); LYMPHOCYTES % (AUTO) 13.3 % (20.5-51.5); MEAN CORPUSCULAR HEMOGLOBIN 33.1 uug (24.7-32.8); MEAN CORPUSCULAR HGB CONC 35 g/dL (32.3-35.6); MEAN CORPUSCULAR VOLUME 95.3 fL (75.5-95.3); MONOCYTES # (AUTO) 0.6 K/uL (2.0-10.0); MONOCYTES % (AUTO) 5.6 % (0.0-11.0); NEUTROPHILS # (AUTO) 7.6 K/uL (1.8-8.9); NEUTROPHILS % (AUTO) 76.2 % (38.5-71.5); PLATELET COUNT (AUTO) 256 K/uL (179-408); RED BLOOD CELL COUNT(AUTO) 3.77 MIL/uL (3.63-4.92); WHITE BLOOD COUNT (AUTO) 9.9 K/uL (3.8-11.8)
[2017-05-04 19:04] LABS: *CLARITY,URINE HAZY (CLEAR)
[2017-05-04 19:07] LABS: RBC,URINE 50-80 /HPF (0-3); SQUAMOUS EPITHELIAL CELL,UR FEW /HPF (NONE SEEN)
[2017-05-04 19:08] LABS: MUCUS,URINE MODERATE /LPF (0-FEW)
[2017-05-04] MEDS: LORATADINE 10 MG TABLET PO SCH (21:00)
[2017-05-04] MEDS ORDERED: DIVALPROEX 250 MG TABLET.DR PO SCH (21:00)
[2017-05-04] MEDS: SENNOSIDES 1 TABLET PO SCH (21:37)
[2017-05-04] MEDS: OSELTAMIVIR PHOSPHATE 75 MG CAPSULE PO SCH (21:38)
[2017-05-05] MEDS: MORPHINE SULFATE 4 MG/1 ML DISP.SYRIN IM PRN ×3 (04:49→21:03)
[2017-05-05] MEDS: ACETAMINOPHEN 325 MG TABLET PO PRN (05:24)
[2017-05-05 05:46] VITALS: BP 93/38
[2017-05-05] MEDS: PANTOPRAZOLE SODIUM 40 MG TABLET.DR PO SCH (06:36)
[2017-05-05] MEDS ORDERED: PANTOPRAZOLE SODIUM 40 MG TABLET.DR PO SCH (07:00)
[2017-05-05] MEDS: CARVEDILOL 12.5 MG TABLET PO SCH ×2 (09:00→17:00)
[2017-05-05] MEDS: LOSARTAN POTASSIUM 50 MG TABLET PO SCH (09:00)
[2017-05-05] MEDS: NIFEdipine XL 30 MG TABSR PO SCH ×2 (09:00→20:28)
[2017-05-05] MEDS: DOCUSATE SODIUM 100 MG CAPSULE PO SCH ×2 (09:33→17:55)
[2017-05-05] MEDS: ASPIRIN 81 MG TAB.CHEW PO SCH (09:33)
[2017-05-05] MEDS: MIRALAX 17 GM POWD.PACK PO SCH (09:34)
[2017-05-05] MEDS: ASCORBIC ACID 500 MG TABLET PO SCH (09:36)
[2017-05-05] MEDS: ESCITALOPRAM OXALATE 10 MG TABLET PO SCH (09:37)
[2017-05-05] MEDS: OSELTAMIVIR PHOSPHATE 75 MG CAPSULE PO SCH ×2 (09:37→20:26)
[2017-05-05] MEDS: CALCIUM CARB/VITAMIN D 500MG-200UNITS TABLET PO SCH (09:37)
[2017-05-05] MEDS: BACLOFEN 10 MG TABLET PO SCH ×2 (09:37→20:26)
[2017-05-05] MEDS: MULTIVIT, IRON, MIN NO. 8, FA TABLET PO SCH (09:38)
[2017-05-05] MEDS: DIVALPROEX 250 MG TABLET.DR PO SCH ×2 (09:38→20:26)
[2017-05-05] MEDS: PROTEIN SUPPLEMENT (PROSTAT) 30 ML LIQUID PO SCH ×2 (09:38→17:55)
[2017-05-05] MEDS: POTASSIUM CHLORIDE 20 MEQ TAB.PRT.SR PO SCH (09:39)
[2017-05-05] MEDS: CLOPIDOGREL 75 MG TABLET PO SCH (09:44)
[2017-05-05] MEDS: GABAPENTIN 300 MG CAPSULE PO SCH ×2 (09:44→17:55)
[2017-05-05] MEDS: LIDOCAINE 5% PATCH TD SCH ×2 (09:44→11:00)
[2017-05-05 11:51] VITALS: BP 88/50
[2017-05-05 15:51] VITALS: BP 89/50
[2017-05-05 17:59] VITALS: BP 126/58
[2017-05-05 19:00] VITALS: BP 108/54
[2017-05-05] MEDS: LORATADINE 10 MG TABLET PO SCH (20:26)
[2017-05-05] MEDS: SENNOSIDES 1 TABLET PO SCH (21:00)
[2017-05-06] MEDS: BENZOCAINE/MENTH/CETYLPYRD LOZENGE MM PRN ×2 (00:17→21:51)
[2017-05-06] MEDS: LORAZEPAM 0.5 MG TABLET PO PRN ×2 (00:17→21:51)
[2017-05-06] MEDS: MORPHINE SULFATE 4 MG/1 ML DISP.SYRIN IM PRN ×4 (00:18→21:03)
[2017-05-06 04:00] VITALS: BP 117/45
[2017-05-06] MEDS: PANTOPRAZOLE SODIUM 40 MG TABLET.DR PO SCH (06:17)
[2017-05-06] MEDS ORDERED: MAGNESIUM CITRATE 296 ML BOTTLE PO ONE (07:45)
[2017-05-06] MEDS ORDERED: LACTULOSE 20 G/30 ML LIQUID UDC PO PRN (08:00)
[2017-05-06 08:11] VITALS: BP 130/40
[2017-05-06] MEDS: DOCUSATE SODIUM 100 MG CAPSULE PO SCH ×2 (08:58→17:50)
[2017-05-06] MEDS: POTASSIUM CHLORIDE 20 MEQ TAB.PRT.SR PO SCH (08:58)
[2017-05-06] MEDS: ASCORBIC ACID 500 MG TABLET PO SCH (08:58)
[2017-05-06] MEDS: DIVALPROEX 250 MG TABLET.DR PO SCH ×2 (08:58→20:57)
[2017-05-06] MEDS: OSELTAMIVIR PHOSPHATE 75 MG CAPSULE PO SCH ×2 (08:58→20:56)
[2017-05-06] MEDS: CALCIUM CARB/VITAMIN D 500MG-200UNITS TABLET PO SCH (08:58)
[2017-05-06] MEDS: MULTIVIT, IRON, MIN NO. 8, FA TABLET PO SCH (08:58)
[2017-05-06] MEDS: BACLOFEN 10 MG TABLET PO SCH ×2 (08:58→20:57)
[2017-05-06] MEDS: ASPIRIN 81 MG TAB.CHEW PO SCH (08:59)
[2017-05-06] MEDS: ESCITALOPRAM OXALATE 10 MG TABLET PO SCH (08:59)
[2017-05-06] MEDS: GABAPENTIN 300 MG CAPSULE PO SCH ×2 (08:59→17:50)
[2017-05-06] MEDS: NIFEdipine XL 30 MG TABSR PO SCH ×2 (08:59→21:00)
[2017-05-06] MEDS: LIDOCAINE 5% PATCH TD SCH ×2 (09:00→09:51)
[2017-05-06] MEDS: LOSARTAN POTASSIUM 50 MG TABLET PO SCH (09:00)
[2017-05-06] MEDS: CARVEDILOL 12.5 MG TABLET PO SCH ×2 (09:00→17:00)
[2017-05-06] MEDS: MIRALAX 17 GM POWD.PACK PO SCH (09:00)
[2017-05-06] MEDS: CLOPIDOGREL 75 MG TABLET PO SCH (09:01)
[2017-05-06] MEDS: PROTEIN SUPPLEMENT (PROSTAT) 30 ML LIQUID PO SCH ×2 (09:09→17:00)
[2017-05-06 10:34] LABS: CARBON DIOXIDE 29 mmol/L (21-32); CHLORIDE 96 mmol/L (98-107); CREATININE 0.8 mg/dL (0.6-1.3); GLUCOSE 136 mg/dL (74-106); PHOSPHOROUS 4.1 mg/dL (2.5-4.9); POTASSIUM 4.6 mmol/L (3.5-5.1); UREA NITROGEN, BLOOD 15 mg/dL (7-18); URIC ACID 2.8 mg/dL (2.6-6.0)
[2017-05-06 10:57] LABS: THYROID STIMULATING HORMONE 1.249 mIU/mL (0.358-3.740)
[2017-05-06 11:38] VITALS: BP 107/63
[2017-05-06 15:45] VITALS: BP 110/53
[2017-05-06] MEDS: SENNOSIDES 1 TABLET PO SCH (20:58)
[2017-05-06] MEDS: LORATADINE 10 MG TABLET PO SCH (20:58)
[2017-05-06 21:39] VITALS: BP 121/57
[2017-05-07] MEDS: MORPHINE SULFATE 4 MG/1 ML DISP.SYRIN IM PRN ×4 (01:53→18:56)
[2017-05-07] MEDS: PANTOPRAZOLE SODIUM 40 MG TABLET.DR PO SCH (06:19)
[2017-05-07 07:30] VITALS: BP 110/44
[2017-05-07 08:04] LABS: BASOPHILS # (AUTO) 0.1 K/uL (0.0-8.0); BASOPHILS % (AUTO) 0.8 % (0.0-2.0); EOSINOPHILS # (AUTO) 0.4 K/uL (0.0-0.7); EOSINOPHILS % (AUTO) 5.2 % (0.0-7.0); LYMPHOCYTES # (AUTO) 1.9 K/uL (20.0-40.0); LYMPHOCYTES % (AUTO) 23.7 % (20.5-51.5); MEAN CORPUSCULAR HGB CONC 34 g/dL (32.3-35.6); MEAN CORPUSCULAR VOLUME 95.9 fL (75.5-95.3); MONOCYTES # (AUTO) 0.8 K/uL (2.0-10.0); MONOCYTES % (AUTO) 10.1 % (0.0-11.0); NEUTROPHILS # (AUTO) 4.9 K/uL (1.8-8.9); NEUTROPHILS % (AUTO) 60.2 % (38.5-71.5); RED BLOOD CELL COUNT(AUTO) 3.18 MIL/uL (3.63-4.92)
[2017-05-07 08:30] LABS: ALANINE AMINOTRANSFERASE 15 U/L (14-59); ALKALINE PHOSPHATASE 80 U/L (50-136); ASPARTATE AMINOTRANSFERASE 13 U/L (15-37); BILIRUBIN,TOTAL 0.3 mg/dL (0.2-1.0); CARBON DIOXIDE 33 mmol/L (21-32); CHLORIDE 98 mmol/L (98-107); CREATININE 0.7 mg/dL (0.6-1.3); GLUCOSE 111 mg/dL (74-106); HEMOGLOBIN 10.5 g/dL (10.9-14.3); MAGNESIUM 2.2 mg/dL (1.8-2.4); PHOSPHOROUS 3.7 mg/dL (2.5-4.9); POTASSIUM 4.7 mmol/L (3.5-5.1); TOTAL PROTEIN, SERUM 5.9 g/dL (6.4-8.2); UREA NITROGEN, BLOOD 20 mg/dL (7-18)
[2017-05-07 08:31] LABS: HEMATOCRIT 30.5 % (31.2-41.9); PLATELET COUNT (AUTO) 189 K/uL (179-408)
[2017-05-07] MEDS: CARVEDILOL 12.5 MG TABLET PO SCH ×2 (09:00→17:00)
[2017-05-07] MEDS: DIVALPROEX 250 MG TABLET.DR PO SCH (09:00)
[2017-05-07] MEDS: MIRALAX 17 GM POWD.PACK PO SCH (09:00)
[2017-05-07] MEDS: PROTEIN SUPPLEMENT (PROSTAT) 30 ML LIQUID PO SCH ×2 (09:00→17:00)
[2017-05-07] MEDS: LOSARTAN POTASSIUM 50 MG TABLET PO SCH (09:00)
[2017-05-07] MEDS: LIDOCAINE 5% PATCH TD SCH ×2 (09:00→11:00)
[2017-05-07] MEDS: NIFEdipine XL 30 MG TABSR PO SCH (09:00)
[2017-05-07] MEDS: ESCITALOPRAM OXALATE 10 MG TABLET PO SCH (09:05)
[2017-05-07] MEDS: DOCUSATE SODIUM 100 MG CAPSULE PO SCH ×2 (09:05→18:19)
[2017-05-07] MEDS: ASCORBIC ACID 500 MG TABLET PO SCH (09:05)
[2017-05-07] MEDS: OSELTAMIVIR PHOSPHATE 75 MG CAPSULE PO SCH (09:06)
[2017-05-07] MEDS: CLOPIDOGREL 75 MG TABLET PO SCH (09:06)
[2017-05-07] MEDS: MULTIVIT, IRON, MIN NO. 8, FA TABLET PO SCH (09:06)
[2017-05-07] MEDS: ASPIRIN 81 MG TAB.CHEW PO SCH (09:06)
[2017-05-07] MEDS: GABAPENTIN 300 MG CAPSULE PO SCH ×2 (09:06→18:18)
[2017-05-07] MEDS: BACLOFEN 10 MG TABLET PO SCH (09:06)
[2017-05-07] MEDS: CALCIUM CARB/VITAMIN D 500MG-200UNITS TABLET PO SCH (09:07)
[2017-05-07] MEDS: POTASSIUM CHLORIDE 20 MEQ TAB.PRT.SR PO SCH (09:07)
[2017-05-07] MEDS ORDERED: GABA-534 PO (11:48)
[2017-05-07] MEDS ORDERED: DIVA250T4 PO (11:48)
[2017-05-07] MEDS ORDERED: PROT30LI PO (11:48)
[2017-05-07] MEDS ORDERED: NIFE30TA2 PO (11:48)
[2017-05-07 17:00] VITALS: BP 121/55
[2017-05-09 15:08] LABS: A/G RATIO 1.2 (0.7-1.7); ALBUMIN 3.2 g/dL (2.9-4.4); ALPHA-1-GLOBULIN 0.2 g/dL (0.0-0.4); ALPHA-2-GLOBULIN 0.8 g/dL (0.4-1.0); BETA GLOBULIN 0.8 g/dL (0.7-1.3); GAMMA GLOBULIN 0.8 g/dL (0.4-1.8); GLOBULIN, TOTAL 2.7 g/dL (2.2-3.9); M-SPIKE Not Observed g/dL (Not Observed)
[2017-05-12] MEDS ORDERED: ALENDRONATE SODIUM 70 MG TABLET PO SCH (06:00)
[2017-05-15 10:07] LABS: *PEU ALBUMIN, UR 58.9 % (.); *PEU ALPHA-2-GLOBULIN, UR 9.4 % (.); *PEU GAMMA GLOBULIN, UR 10.3 % (.); *PEU PROTEIN, TOTAL, UR 20.2 mg/dL (Not Estab.); *PEUALPHA-1-GLOBULIN, UR 4.4 % (.); *PEUBETA GLOBULIN, UR 16.9 % (.)
== END 2017-05-07 19:10 | DRG 543 ==
LOC: ER 12:48 → MED 18:36 → MEDSURG1 05-06 20:10
PROVIDERS: ADMIT Internal Medicine; ATTEND Internal Medicine
DX: M80.08XA Age-related osteoporosis with current pathological fracture, vertebra(e), initial encounter for fracture (principal); E87.1 Hypo-osmolality and hyponatremia; G62.9 Polyneuropathy, unspecified; G40.909 Epilepsy, unspecified, not intractable, without status epilepticus; M41.9 Scoliosis, unspecified; J44.9 Chronic obstructive pulmonary disease, unspecified; J98.11 Atelectasis; M79.7 Fibromyalgia; G89.4 Chronic pain syndrome; F31.9 Bipolar disorder, unspecified; J30.9 Allergic rhinitis, unspecified; I25.10 Atherosclerotic heart disease of native coronary artery without angina pectoris; Z79.82 Long term (current) use of aspirin; Z79.02 Long term (current) use of antithrombotics/antiplatelets; I25.2 Old myocardial infarction; Z95.5 Presence of coronary angioplasty implant and graft; Z77.22 Contact with and (suspected) exposure to environmental tobacco smoke (acute) (chronic); Z87.891 Personal history of nicotine dependence; Z79.899 Other long term (current) drug therapy; Z91.81 History of falling; I10 Essential (primary) hypertension; K59.00 Constipation, unspecified; R50.9 Fever, unspecified; K21.9 Gastro-esophageal reflux disease without esophagitis; R33.9 Retention of urine, unspecified; F41.9 Anxiety disorder, unspecified
CPT/HCPCS: 36415; 71045; 72131; 82533; 83735; 84100; 84155; 84165; 84166; 84443; 84550; 85025; 87040; 87086; 87400; 97116; 97530; A4663; J1170; J2270; J2550; J3490

== ENCOUNTER 2018-02-15 15:29 | Emergency (ER) | payer MEDICARE, OTHER ==
[~2018-02-15] VITALS: Ht 165.1 cm; Wt 90.7 kg
[~2018-02-15 15:29] MED LIST changes: -ACET650T10 PO; +ALBU8HFA4 IH; +AMIN30LI27 PO; -ATOR80TA PO; +AZEL137S7 NS; -BACL10TA PO; -CHOL100062 PO; -CLON0.1T PO; +DEXT1LOZ20 PO; +DICL100G16 TP; +DIVA250T4 PO; -ENOX40DI SQ; +ESCI10TA PO; -FAMO-132 PO; -FURO-152 PO; +GUAI237L83 PO; -HYDR-4076 PO; +IBUP-1955 PO; -LEVE500T9 PO; +LORA0.5T PO; -LUBI24CA5 PO; +MAG355OR18 PO; -MONT10TA25 PO; -MORP30TA59 PO; +NIFE30TA2 PO; +POLY17PO4 PO; +PROT30LI PO; +SENN-167 PO
[2018-02-15 16:01] LABS: BASOPHILS % (AUTO) 0.7 % (0.0-2.0); EOSINOPHILS # (AUTO) 0.1 K/uL (0.0-0.7); EOSINOPHILS % (AUTO) 2.4 % (0.0-7.0); HEMATOCRIT 36.2 % (31.2-41.9); HEMOGLOBIN 12.5 g/dL (10.9-14.3); LYMPHOCYTES # (AUTO) 1.8 K/uL (20.0-40.0); LYMPHOCYTES % (AUTO) 32.4 % (20.5-51.5); MEAN CORPUSCULAR HEMOGLOBIN 34.1 uug (24.7-32.8); MEAN CORPUSCULAR HGB CONC 34 g/dL (32.3-35.6); MEAN CORPUSCULAR VOLUME 98.9 fL (75.5-95.3); MONOCYTES # (AUTO) 0.5 K/uL (2.0-10.0); MONOCYTES % (AUTO) 9.4 % (0.0-11.0); NEUTROPHILS % (AUTO) 55.1 % (38.5-71.5); PLATELET COUNT (AUTO) 213 K/uL (179-408); RED BLOOD CELL COUNT(AUTO) 3.66 MIL/uL (3.63-4.92); WHITE BLOOD COUNT (AUTO) 5.4 K/uL (3.8-11.8)
--- NOTE | 2018-02-15 16:05 | NUR ---
tay mercedes at bedside again talking to pt.
[2018-02-15 16:08] LABS: CARBON DIOXIDE 29 mmol/L (21-32); CHLORIDE 99 mmol/L (98-107); CREATININE 0.7 mg/dL (0.6-1.3); GLUCOSE 108 mg/dL (74-106); POTASSIUM 4.2 mmol/L (3.5-5.1); UREA NITROGEN, BLOOD 11 mg/dL (7-18)
[2018-02-15] MEDS ORDERED: ZOLP10TA6 PO (16:11)
[2018-02-15] MEDS ORDERED: ACET-2154 PO (16:11)
[2018-02-15] MEDS ORDERED: CHOL200074 PO (16:11)
[2018-02-15] MEDS ORDERED: BACL10TA PO (16:11)
[2018-02-15] MEDS ORDERED: [UNRECOGNIZED DRUG - OTHER] PO (16:11)
[2018-02-15] MEDS ORDERED: GABA600T2 PO (16:11)
[2018-02-15] MEDS ORDERED: ESZO3TAB27 PO (16:11)
[2018-02-15] MEDS ORDERED: DIPH25CA83 PO (16:11)
[2018-02-15] MEDS ORDERED: HYDR-548 PO (16:11)
[2018-02-15] MEDS ORDERED: BISA-79 PO (16:11)
--- NOTE | 2018-02-15 16:43 | NUR ---
called brett to transfer the pt back to [facility] Addendum: 02/15/18 at 1644 by JUAN LUIS trip number [id number]
== END 2018-02-15 17:49 | disposition home or self-care (01) ==
LOC: ER 15:31
DX: G89.29 Other chronic pain (principal); M79.10 Myalgia, unspecified site; I10 Essential (primary) hypertension; J44.9 Chronic obstructive pulmonary disease, unspecified; K21.9 Gastro-esophageal reflux disease without esophagitis; F17.200 Nicotine dependence, unspecified, uncomplicated; Z88.8 Allergy status to other drugs, medicaments and biological substances
CPT/HCPCS: 36415; 85025; A4663